=== PATIENT | male | born 1945 | race Caucasian/White ===

== ENCOUNTER 2017-10-08 10:06 | Outpatient (CLI) | payer OTHER ==
[2017-10-08 11:04] LABS: eGFR (African) > 60; eGFR (Non-African) > 60
== END 2017-10-08 10:10 ==
LOC: LAB 10:06
PROVIDERS: ATTEND Family Medicine
DX: E78.2 Mixed hyperlipidemia (principal)
CPT/HCPCS: 36415; 80053; 80061

== ENCOUNTER 2019-04-12 09:27 | Outpatient (CLI) | payer OTHER ==
[2019-04-12 09:50] LABS: BASOPHILS % 0.3 % (0.0-1.5); NEUTROPHILS # 3.2 # k/uL (1.4-7.7)
[2019-04-12 11:10] LABS: eGFR (Non-African) > 60
[2019-04-12 11:11] LABS: HDL 38 mg/dL (>40)
[2019-04-12 12:18] LABS: A1C 6.5 % (<5.7)
== END 2019-04-12 09:30 ==
LOC: LAB 09:27
PROVIDERS: ATTEND Family Medicine
DX: R53.83 Other fatigue (principal); R73.9 Hyperglycemia, unspecified; E78.2 Mixed hyperlipidemia
CPT/HCPCS: 36415; 80053; 80061; 83036; 84443; 85025; 93005